=== PATIENT | male | born 1950 | race Caucasian/White ===

== ENCOUNTER 2022-12-22 14:13 | Outpatient (CLI) | payer MEDICARE, OTHER, SELFPAY ==
--- NOTE | 2022-12-22 | XR_ITS ---
WS: [id number] Chest 2 views, 12/22/2022 Clinical Data: UNSPECIFIED ATRIAL FIBRILLATION Comparison: None. Findings: No nodules or masses are seen. The heart is enlarged and the pulmonary vascularity is minim ally prominent. There are small bilateral effusions. There is a patchy opacity in the right middle lo be periphery which could represent pneumonia and/or minimal atelectasis. The aortic arch and descendi ng thoracic aorta show tortuosity. The heart is slightly enlarged. No pneumothorax is seen. XR/XR chest 2V* [id number] Impression: 1. Cardiomegaly with mild pulmonary vascular congestion and small effusions whi ch could indicate congestive heart failure. 2. Patchy peripheral opacity in right middle lobe which could represent pneumon ia and/or atelectasis.
== END 2022-12-22 14:14 | disposition home or self-care (01) ==
PROVIDERS: PCP Nurse Practitioner; Visit Provider Nurse Practitioner
DX: I48.91 Unspecified atrial fibrillation (principal); I51.7 Cardiomegaly; J90 Pleural effusion, not elsewhere classified; R91.8 Other nonspecific abnormal finding of lung field
CPT/HCPCS: 71046